=== PATIENT | female | born 1995 | race Caucasian/White ===

== ENCOUNTER 2021-03-15 05:00 | Inpatient (IN) | payer OTHER ==
--- NOTE | 2021-03-07 15:25 | HPE ---
HISTORY AND PHYSICAL DATE OF ADMISSION: 03/15/2021 HISTORY OF PRESENT ILLNESS: This is a 25-year-old 3 para 1, LMP is June 13, 2020, EDC March 20, 2021 by early ultrasound at 15 weeks, 5 days on October 01, 2020. Her final ZACH was 03/20/2021 based on her LMP. Her past history is that she is late entry to care, she started at 24 and 2 weeks of gestation, she is varicella non-immune. On November 19, 2011 at 40 weeks had a primary section, a male , 8 pounds, 6 ounces, was in the POP positioned, failed to descend and was pushing at 10 cm. In 2008, had a 12 weeks spontaneous with D and C. MEDICATIONS: She is presently on vitamins. ALLERGIES: No known drug allergies. PAST MEDICAL HISTORY: No past medical history. VACCINATIONS: She has had her influenza vaccination and declined COVID immunization. PHYSICAL EXAMINATION: On examination today, the symphysis fundus height is 37, vertex presenting, heart is present and good movements, blood pressure is 109/57, respirations are 18, pulse is 78 and weight is 166 pounds. She is 5'6" and afebrile at 96.8. The rest of the examination is unremarkable. Normocephalic, atraumatic. Neck with full range of motion. Pupils are equal and reactive to light. Distal pulses are symmetric. No evidence of DVT, PE or superficial phlebitis. Chest is clear bilaterally to bases. No wheezes or rhonchi. No CVA tenderness. Abdomen is soft, four quadrant bowel sounds are noted. Vertex is presenting. No rashes, lesions or pruritus. No arthralgias. No myalgias. No complaint of joint pain. No complaint of joint pain, no complaint, cough, wheeze or shortness of breath, or dyspnea on exertion. No nausea, vomiting, diarrhea or constipation. No urgency or frequency. No endocrine issues. In summary, we have a term gestation for repeat at patient request. The risks and benefits of surgery were discussed including hemorrhage, infection, perforation, , reoperation, remote possibility of blood transfusion and remote possibility of hysterectomy for life-threatening bleeding issues. Patient expressed an understanding of concerns, all questions were answered, a 20 minute discussion. We await consultation by Anesthesia. cc: [facility]
[~2021-03-15] VITALS: Ht 167.6 cm; Wt 76.3 kg
[~2021-03-15 05:00] MED LIST: PRENTAB53 PO
[2021-03-15] MEDS ORDERED: ceFAZolin SOD 2 GM in IV 1 EA IV ONE (05:45)
[2021-03-15] MEDS ORDERED: LR 1,000 ML IV ONE (05:45)
[2021-03-15] MEDS ORDERED: AZITHROMYCIN INJ 500 MG, VIAL MATE ADAPTER 1 EACH in NS 250 ML IV ONE (05:45)
[2021-03-15] MEDS ORDERED: ACETAMINOPHEN 650 MG SUPP PR ONE (05:45)
[2021-03-15] MEDS ORDERED: BICITRA 30ML SOLN UDC PO ONE (05:45)
[2021-03-15] MEDS ORDERED: BUPIVACAINE HCL 0.25% 10ML VIAL SC ONE (05:45)
[2021-03-15 05:56] LABS: HEMATOCRIT 35.7 % (36.0-47.0); HEMOGLOBIN 11.7 g/dl (12.0-15.5); MEAN CORPUSCULAR HEMOGLOBIN 32.2 pg (27.0-33.0); MEAN CORPUSCULAR HGB CONC 32.8 g/dl (32.0-36.5); MEAN CORPUSCULAR VOLUME 98.3 fl (80.0-96.0); PLATELET COUNT, AUTOMATED 253 10^3/uL (150-450); RED BLOOD COUNT 3.63 10^6/uL (4.00-5.40); WHITE BLOOD COUNT 12.5 10^3/uL (4.0-10.0)
[2021-03-15] MEDS ORDERED: LR 1,000 ML IV SCH ×3 (06:45→09:50)
[2021-03-15] MEDS ORDERED: MORPHINE PRES-FREE INJ 10 MG/10 ML VIAL (J2274) As Ordered ONE (07:15)
[2021-03-15] MEDS ORDERED: OXYTOCIN 30 UNITS IN 0.9% NaCl 500ML IV BAG (J2590) As Ordered ONE (07:18)
[2021-03-15] MEDS ORDERED: ONDANSETRON 4MG/2ML VIAL As Ordered ONE (07:19)
[2021-03-15] MEDS ORDERED: dexameTHASONE 4 MG/ML 1ML VIAL (J1100 PER 1MG) As Ordered ONE (07:19)
[2021-03-15] MEDS ORDERED: NALBUPHINE HCL 10 MG/ML AMP (J2300) IV PRN ×2 (07:45→09:50)
[2021-03-15] MEDS ORDERED: diphenhydrAMINE 50MG/ML VIAL (J1200) IV PRN (07:45)
[2021-03-15] MEDS ORDERED: NALOXONE INJ 0.4MG/1ML VIAL (J2310 PER 1MG) IV PRN ×2 (07:45)
[2021-03-15] MEDS ORDERED: ONDANSETRON 4MG/2ML VIAL IV PRN ×2 (07:45→09:50)
[2021-03-15] MEDS ORDERED: METOCLOPRAMIDE INJ 10MG/2ML VIAL (J2765 PER 1) IV PRN (07:45)
[2021-03-15] MEDS ORDERED: OXYTOCIN INJ 10 UNITS/ML VIAL (J2590) As Ordered ONE (08:21)
[2021-03-15] MEDS ORDERED: PHENYLephrine 500MCG 5ML (100MCG/ML) SYRINGE As Ordered ONE (08:24)
[2021-03-15] MEDS ORDERED: ePHEDrine SULFATE 25 MG/5 ML(5MG/ML) SYRINGE As Ordered ONE (08:24)
[2021-03-15] MEDS ORDERED: KETOROLAC 60MG 2ML VIAL As Ordered ONE (08:24)
[2021-03-15 08:36] LABS: CORD GAS ABE A -4.9; CORD GAS HCO3 A 23.7 MEQ/L; CORD GAS O2 SAT A 51.9 %; CORD GAS PCO2 A 58.3 mmHg; CORD GAS PH A 7.227 UNITS; CORD GAS PO2 A 23.3 mmHg; CORD GAS SBC A 19.5 MEQ/L; CORD GAS TCO2 A 25.5 MEQ/L
[2021-03-15 08:37] LABS: CORD GAS ABE V -2.5; CORD GAS HCO3 V 23.9 MEQ/L; CORD GAS O2 SAT V 69.2 %; CORD GAS PCO2 V 47.4 mmHg; CORD GAS PH V 7.321 UNITS; CORD GAS PO2 V 27.6 mmHg; CORD GAS SBC V 21.7 MEQ/L; CORD GAS TCO2 V 25.4 MEQ/L
[2021-03-15] MEDS ORDERED: ACETAMINOPHEN TAB 650MG DOSE (2X325MG) PO PRN (09:35)
[2021-03-15] MEDS ORDERED: RHOGAM 300 MCG (1500 IU) INJ (J2790) IM SCH (09:35)
[2021-03-15] MEDS ORDERED: DOCUSATE SODIUM 100MG CAPSULE PO PRN (09:35)
[2021-03-15] MEDS ORDERED: SIMETHICONE 80MG CHEW TAB PO PRN (09:35)
[2021-03-15] MEDS ORDERED: MOM 30ML SUSPENSION UDC PO PRN (09:35)
[2021-03-15] MEDS ORDERED: MEASLES,MUMPS,RUBELLA VACCINE INJ (MMR-II) (90707) SC SCH (09:35)
[2021-03-15] MEDS ORDERED: OXYTOCIN INJ 10 UNITS/ML VIAL (J2590) IV ONE (09:35)
[2021-03-15] MEDS ORDERED: PERCOCET 5MG/325MG TAB PO PRN (09:35)
[2021-03-15] MEDS ORDERED: ANUSOL HC CREAM 30GM TOP PRN (09:35)
[2021-03-15] MEDS ORDERED: fentaNYL 100 MCG/2 ML INJECTION (J3010) IV PRN (09:50)
[2021-03-15 11:00] VITALS: BP 112/58
[2021-03-15 11:30] VITALS: BP 121/70
[2021-03-15 12:30] VITALS: BP 107/51
[2021-03-15 13:30] VITALS: BP 107/57
[2021-03-15] MEDS: KETOROLAC 30 MG/ML 1ML VIAL IV SCH ×2 (15:27→21:08)
[2021-03-15 17:52] VITALS: BP 118/54
[2021-03-15 22:00] VITALS: BP 115/54
[2021-03-16 02:00] VITALS: BP 117/57
[2021-03-16] MEDS: KETOROLAC 30 MG/ML 1ML VIAL IV SCH (02:18)
[2021-03-16 06:00] VITALS: BP 103/58
[2021-03-16 07:32] LABS: HEMATOCRIT 30.3 % (36.0-47.0); MEAN CORPUSCULAR HEMOGLOBIN 32.6 pg (27.0-33.0); MEAN CORPUSCULAR VOLUME 98.7 fl (80.0-96.0); PLATELET COUNT, AUTOMATED 233 10^3/uL (150-450); RED BLOOD COUNT 3.07 10^6/uL (4.00-5.40)
--- NOTE | 2021-03-16 08:50 | IPN ---
PROGRESS NOTE DATE: 03/16/2021 day # and postoperative day #1. SUBJECTIVE: This lady is a 25-year-old 3 now para 2 who was admitted for elective repeat section. Her expected date of confinement was 03/20/2021 based on her last menstrual period. She is O positive, VDRL negative, rubella immune. Her admitting hemoglobin was 11.7, hematocrit 35.2 and platelets were 253,000. She had an elective repeat section, livebirth male infant weighing 6 pounds, 11 ounces. Apgars of 8 and 9 at 1 and 5 minutes respectively. The cord was around the neck x3 loose. Arterial blood gas was 7.22, base excess -4.9, venous pH 7.32, base excess -2.5. On her first day we discussed phlebitis, cystitis, mastitis, endometritis, cellulitis, diet, exercise, pain management, perineal, breast and wound care. OBJECTIVE: The examination was unremarkable, normocephalic, atraumatic. Neck with full range of motion. Pupils are equal and reactive to light. Distal pulses are symmetric. No evidence of DVT, PE or superficial phlebitis. Chest is clear bilaterally to bases. No wheezes or rhonchi. No CVA tenderness. Abdomen is soft, four quadrant bowel sounds are noted. The incision is clean and dry. Uterus is 2 below. Lochia is moderate. No urgency or frequency. No nausea, vomiting, diarrhea or constipation. She is breast-feeding well, passing gas and voiding. Plans are for discharge tomorrow morning, circumcision of the male infant today. All questions were answered, a 20 minute discussion. She picked up her medications at [place]. She will have a two week incision check at [facility], a six week checkup at [facility]. All questions were answered. cc: [facility]
[2021-03-16] MEDS: PRENATAL VITAMINS CHEWABLE TABLET PO SCH (09:19)
[2021-03-16 10:04] VITALS: BP 97/55
[2021-03-16] MEDS: ACETAMINOPHEN 500 MG TAB PO PRN ×2 (11:58→19:46)
[2021-03-16 14:00] VITALS: BP 115/57
[2021-03-16] MEDS: IBUPROFEN 600MG TAB PO PRN (17:42)
[2021-03-16 18:02] VITALS: BP 111/68
[2021-03-16 22:00] VITALS: BP 118/66
[2021-03-17] MEDS: IBUPROFEN 600MG TAB PO PRN (00:13)
[2021-03-17] MEDS: PERCOCET 5MG/325MG TAB PO PRN ×2 (00:49→09:22)
[2021-03-17 02:00] VITALS: BP 99/59
[2021-03-17] MEDS: ACETAMINOPHEN 500 MG TAB PO PRN (05:56)
[2021-03-17 06:00] VITALS: BP 110/60
[2021-03-17] MEDS ORDERED: IBUP-1022 PO (07:01)
[2021-03-17] MEDS ORDERED: PERCOCET PO (07:01)
--- NOTE | 2021-03-17 07:03 | DS.PDOC ---
Discharge Summary General Date of Admission Mar 15, 2021 at 05:00 Date of Discharge Mar 17, 2021 Discharge Summary HOSPITAL COURSE: Cass is a 25 yo G3 now P2 who underwent a scheduled, uncomplicated RLTCS on 15Mar2021 due to a history of a prior c section. Her surgery was uncomplicated. Her post operative recovery course was also uncomplicated. On her day of discharge she met all appropriate discharge criteria. She was ambulating, voiding on her own, tolerating a regular diet, passing gas, and her pain was well controlled with PO pain medication. DISCHARGE MEDICATIONS: Please see below. ALLERGIES: Please see below. PHYSICAL EXAMINATION ON DISCHARGE: VITAL SIGNS: Please see below. GENERAL: AAOX3, sitting up in bed, NAD CARDIOVASCULAR EXAMINATION: RRR ABDOMINAL EXAMINATION: Soft, non distended. Fundus firm at U-2. No fundal tenderness. Optifoam dressing in place over incision. No strikethrough. Appropriate tenderness to palpation. No rebound tenderness, guarding, or peritoneal signs. EXTREMITIES: No edema PSYCHIATRIC EXAMINATION: Affect appropriate LABORATORY DATA: Please see below. ACTIVITY: Pelvic rest. No lifting >20 pounds for 6 weeks. DIET: Regular DISCHARGE PLAN: Discharge home DISPOSITION: [place] home on 17Mar2021 DISCHARGE INSTRUCTIONS: Postoperatively, you should expect significant abdominal soreness. We will provide oral pain medications, typically an anti-inflammatory (motrin) and an oral narcotic (percocet). It is recommended to take the anti-inflammatory medication three times daily, using the narcotic medication as needed in addition. Sometimes, narcotic medications can cause constipation, and we recommend using a stool softener (colace), drinking plenty of water, increasing the fiber in your diet, and drinking prune juice if constipation becomes a significant issue. Dressings: Your abdominal incision is closed with absorbable stitches and dressed with an optifoam dressing. Remove the optifoam dressing in 5 days. You may shower on the day following surgery. It is normal to have some pain at the incisions that is sharp. Signs of infection at the incision include pain, redness, swelling and drainage of pus from the incision. Precautions: Please contact the [facility] clinic during business hours, or report to the Emergency Room after hours for any of the following symptoms: * Fever (temperature > 101F) * Significant pain not controlled with oral pain medications * Significant nausea and vomiting with inability to tolerate any food or medication * Significant redness of the incisions or drainage from the incisions Return to normal: You should be able to resume normal activities and exercise within 8 weeks. You may notice more soreness with abdominal exercises, and this is to be expected. Avoid heavy lifting greater than 10 pounds until 6 weeks after surgery. Nothing in the vagina (no tampons, intercourse, or douching) for 6-8wks. You may resume sexual activity 6-8 weeks after surgery when cleared by your surgeon. ITEMS TO FOLLOWUP ON ON OUTPATIENT: 1. appointment in 6 weeks DISCHARGE CONDITION: Stable. TIME SPENT ON DISCHARGE: Greater than 20 minutes. Asia Hammonds DO, FACOG Vital Signs/I&Os Vital Signs Date Time Temp Pulse Resp B/P (MAP) Pulse Ox O2 Delivery O2 Flow Rate FiO2 03/17/21 06:00 97.7 77 16 110/60 (77) 98 Room Air Discharge Medications Scheduled Vit,Calc76/Iron/Folic (Prenatabs Rx Tablet) 1 Each Tablet, 1 TAB PO DAILY, (Reported) Scheduled PRN Ibuprofen (Ibuprofen) 600 Mg Tablet, 600 MG PO Q6HP PRN for PAIN LEVEL 1-5 Oxycodone/Acetaminophen (Oxycodone-Acetaminophen 5-325) 1 Each Tablet, 1 TAB PO Q4H PRN for MODERATE PAIN (PS 5-7) Allergies Coded Allergies: No Known Allergies (Unverified , 03/08/21) ASIA HAMMONDS DO Mar 17, 2021 07:02
[2021-03-17] MEDS: PRENATAL VITAMINS CHEWABLE TABLET PO SCH (09:21)
[2021-03-17 10:00] VITALS: BP 116/64
--- NOTE | 2021-03-18 20:19 | RO ---
OPERATIVE NOTE DATE OF OPERATION: 03/15/2021 PREOPERATIVE DIAGNOSIS: Repeat section. POSTOPERATIVE DIAGNOSIS: Repeat section, adhesions, has prominent sacral promontory. OPERATION PERFORMED: SURGEON: Juan Amaral M.D. SHIP KEEPER: Katty Inman CNM for extraction, retraction and visualization without which the procedure could not be completed. ANESTHESIA: Spinal plus local anesthetic for intraperitoneal procedures. ESTIMATED BLOOD LOSS: 500 mL DESCRIPTION OF PROCEDURE: After adequate anesthesia, prepped and draped in the supine position, a Rosenberg catheter in the bladder draining clear urine, acetaminophen suppository 1300 mg per rectum, antibiotics appropriately preoperatively. A Pfannenstiel incision was made two fingerbreadths above the symphysis pubis. We noticed immediately after the skin that there was a massive amount of scarring through Maynor's and Camper's fascia right down to what we thought was the uterus and the peritoneum. However, there was no peritoneum. The uterus was adherent to the underside of the rectus on the right-hand side of the abdomen. We attempted to take down those adhesions. After five minutes of attempting to take down those adhesions, we had to extend the incisional site at the skin and we then had to extend a bit up about 1 cm above the low transverse incision into the uterus. An AROM was done, draining clear liquor. This lady has a persistent prominent sacral promontory. There was zero mobility there and therefore we used a forcep blade to wedge out the male infant weighing 6 lb, 11 oz, 3030 gm, Apgars of 9 and 9 in 1 and 5 minutes respectively. Arterial pH was 7.22, base excess -4.9, venous pH 7.32, base excess -2.5. Placenta was manually removed, three vessels in the cord, membranes and tissues intact. The uterus was swept out nicely to make sure there were no retained products of conception. The Mobius was not able to applied because of the adhesions. We put a bladder blade in, identified the lower segment, oversewed the two layers, continuous for the layer and imbricating the second layer. Because there was no evidence of peritoneum anywhere, we could not reperitonealize. Both ovaries and tubes appeared to be normal. Excess blood clots were removed. With instrument and pad count correct and the uterus contracted well down on Pitocin, the peritoneum was closed in interrupted sutures. Then the muscle was approximated. We did oversew that little extension vertically in the midsection of the incision. It was not more than a cm and it was not full thickness. With instrument and pad count correct, the abdomen was closed with running stitch for the fascia, interrupted for the subcu and Dexon to the skin. Marcaine 0.25% 10 mL to the incisional site. We irrigated prior to closing the skin and used a Medpor dressing. The uterus remained contracted well down, the patient and baby tolerating procedure well. We noticed also that there were three nuchal cords. They were loose and the patient was taken to recovery in good condition. D[facility]
--- NOTE | 2021-03-18 21:10 | IPN ---
PROGRESS NOTE DATE: 03/15/2021 This patient requested circumcision of her male . After discussing risks and benefits of circumcision, the medical and nonmedical indications, the penile block and aftercare, expressed understanding of penile block, aftercare and bleeding, signed the consent form. All questions were answered, 20 minute discussion. We await the clearance by the laborer bituminous paving. Duy [facility]ton OB
== END 2021-03-17 12:35 | disposition home or self-care (01) | DRG 773 ==
LOC: M LDI 05:00 → M OBS 10:45
PROVIDERS: ADMIT Obstetrics & Gynecology; ATTEND Obstetrics & Gynecology
PROC: 10D00Z1 Extraction of Products of Conception, Low, Open Approach (ICD-10-PCS; principal; 2021-03-15 07:30)
DX: O34.211 Maternal care for low transverse scar from previous cesarean delivery (principal); Z3A.39 39 weeks gestation of pregnancy; O69.81X0 Labor and delivery complicated by cord around neck, without compression, not applicable or unspecified; Z37.0 Single live birth